=== PATIENT | female | born 1985 | race Caucasian/White ===

== ENCOUNTER 2022-09-02 15:54 | Outpatient (CLI) | payer SELFPAY | END 2022-09-02 15:55 | disposition home or self-care (01) | LOC: LABBT 15:54 | PROVIDERS: ATTEND Orthopaedic Surgery | DX: Z01.812 Encounter for preprocedural laboratory examination (principal); S82.001A Unspecified fracture of right patella, initial encounter for closed fracture | CPT/HCPCS: 93005; 93010 ==

== ENCOUNTER 2022-09-05 11:57 | Day surgery (SDC) | payer OTHER ==
[2022-09-02 11:06] VITALS: BMI 39.9
[2022-09-05] MEDS ORDERED: Midazolam HCl 2 mg/2 ml Vial ONE (13:35)
[2022-09-05] MEDS ORDERED: fentaNYL PF 100 MCG/2 ML SYRINGE ONE (13:36)
[2022-09-05] MEDS ORDERED: fentaNYL 50 mcg/mL 1 mL Vial ONE ×2 (13:36→15:13)
[2022-09-05] MEDS ORDERED: Ropivacaine 0.5% HCl/PF (150 MG/30 ML VIAL) ONE (13:36)
[2022-09-05] MEDS ORDERED: Sodium Chloride 0.9% 100 ML ONE (13:43)
[2022-09-05] MEDS ORDERED: CEFAZOLIN 2 GM VIAL ONE (13:43)
[2022-09-05] MEDS ORDERED: Lidocaine 1% PF 5 ML VIAL ONE (14:03)
[2022-09-05] MEDS ORDERED: Dexamethasone 20 MG/5 ML VIAL ONE (14:03)
[2022-09-05] MEDS ORDERED: Ondansetron PF 4 MG/2 ML Vial ONE (14:03)
[2022-09-05] MEDS ORDERED: PHENYLEPHRINE-NS 100 MCG/ML 10 ML SYRINGE ONE (14:03)
[2022-09-05] MEDS ORDERED: PROPOFOL 200 MG/20 ML VIAL ONE (14:03)
[2022-09-05] MEDS ORDERED: PROPOFOL 20 ML ONE (14:12)
[2022-09-05] MEDS ORDERED: HYDROcodone/Acetaminophen 5/325 mg Tablet ONE (16:15)
[2022-09-05] MEDS ORDERED: Morphine 2 MG/ML VIAL ONE ×2 (16:17→16:48)
[2022-09-05] MEDS ORDERED: traMADol HCl 50 MG TAB ONE ×2 (16:42→17:02)
== END 2022-09-05 17:15 | disposition home or self-care (01) ==
LOC: SDC 11:57
PROVIDERS: ATTEND Orthopaedic Surgery
PROC: 0QSD04Z Reposition Right Patella with Internal Fixation Device, Open Approach (ICD-10-PCS; principal; 2022-09-05)
DX: S82.031A Displaced transverse fracture of right patella, initial encounter for closed fracture (principal); I10 Essential (primary) hypertension; F41.8 Other specified anxiety disorders; Z90.710 Acquired absence of both cervix and uterus; Z79.899 Other long term (current) drug therapy; W13.3XXA Fall through floor, initial encounter; Y99.0 Civilian activity done for income or pay
CPT/HCPCS: C1713; C1776; J1100; J2250; J2272; J2405; J2704; J2795; J3010; J3490